=== PATIENT | male | born 1935 | race Caucasian/White ===

== ENCOUNTER 2017-05-21 13:43 | Emergency (ER) | payer OTHER, MEDICARE ==
[~2017-05-21] VITALS: Ht 185.4 cm; Wt 80.0 kg
[2017-05-21] MEDS ORDERED: LOSARTAN POT25 MG PO (13:57)
[2017-05-21] MEDS ORDERED: PRAVASTATIN10 MG PO (13:57)
[2017-05-21] MEDS ORDERED: OMEPRAZOLE20 M1 PO (13:57)
[2017-05-21] MEDS ORDERED: LEVOTHYROXIN100 MC1 PO (13:58)
[2017-05-21] MEDS ORDERED: COLACE100 MG PO (13:59)
[2017-05-21] MEDS ORDERED: FLOVENT HF220 MCG/AC IN (14:00)
[2017-05-21] MEDS ORDERED: ASPIRIN 81 LOW81 MG PO (14:01)
[2017-05-21] MEDS ORDERED: DEBROX6.5 % OT (14:05)
[2017-05-21] MEDS ORDERED: PREDNISONE50 MG PO (14:05)
[2017-05-21] MEDS ORDERED: ZITHROMAX250 MG PO (14:05)
[2017-05-21 14:06] VITALS: BP 155/67
== END 2017-05-21 14:22 | disposition home or self-care (01) | DRG 203 ==
LOC: ED 13:43
DX: J20.9 Acute bronchitis, unspecified (principal); E03.9 Hypothyroidism, unspecified; I10 Essential (primary) hypertension; K21.9 Gastro-esophageal reflux disease without esophagitis; E78.00 Pure hypercholesterolemia, unspecified

== ENCOUNTER 2017-05-27 11:03 | Emergency (ER) | payer MEDICARE ==
[~2017-05-27] VITALS: Ht 185.4 cm; Wt 75.8 kg
[~2017-05-27 11:03] MED LIST: ASPIRIN 81 LOW81 MG PO; COLACE100 MG PO; DEBROX6.5 % OT; FLOVENT HF220 MCG/AC IN; LEVOTHYROXIN100 MC1 PO; LOSARTAN POT25 MG PO; OMEPRAZOLE20 M1 PO; PRAVASTATIN10 MG PO; PREDNISONE50 MG PO; ZITHROMAX250 MG PO
[2017-05-27 12:00] LABS: HEMATOCRIT 44.2 % (39.0-50.0); IMMATURE GRANULOCYTES 5.7 % (0.0-1.0); MEAN CELL VOLUME 92.3 fL CALC (80.0-100.0); MEAN CORPUSCULAR HGB 31.3 pG CALC (26.0-32.0); MEAN CORPUSCULAR HGB CONC 33.9 g/L CALC (32.0-36.0); NEUT# 8.86 thou/uL (1.82-7.42); RED BLOOD COUNT 4.79 mill/uL (4.70-6.10); RED CELL DISTRI WIDTH 11.9 % (11.5-15.5)
[2017-05-27 12:15] LABS: ALKALINE PHOSPHATASE 101 u/l (38-126); ANION GAP 17 (6-22 (CALC)); BILIRUBIN, TOTAL 0.4 mg/dL (0.0-1.4); BUN 25 mg/dL (8-23); BUN/CREATININE RATIO 22 (12-20 (CALC)); CALCIUM 9.6 mg/dL (8.4-10.2); CARBON DIOXIDE 27 mmol/l (22-30); CHLORIDE 99 mmol/l (95-108); CREATININE 1.1 mg/dL (0.7-1.3); GFR > 60 ML/MIN (>=60 (CALC)); GFR FOR AFR.AMER. > 60 ML/MIN (>=60 (CALC)); GLUCOSE 98 mg/dL (82-115); POTASSIUM 4.5 mmol/l (3.5-5.1); SGOT/AST 40 u/l (19-48); SGPT/ALT 54 u/l (11-66); SODIUM 138 mmol/l (137-146); TOTAL PROTEIN 7.1 g/dL (6.3-8.2)
[2017-05-27] MEDS ORDERED: TESSALON PERLE100 MG PO (12:45)
[2017-05-27] MEDS ORDERED: PROVENTIL HFA IN (12:45)
[2017-05-27] MEDS ORDERED: ERYTHROMYCIN O3.5 GM OU (12:47)
[2017-05-27 13:13] VITALS: BP 163/68
== END 2017-05-27 13:13 | disposition home or self-care (01) ==
LOC: ED 11:03
PROVIDERS: Emergency Medicine
DX: R05 Cough (principal); I10 Essential (primary) hypertension; E78.00 Pure hypercholesterolemia, unspecified; Z95.1 Presence of aortocoronary bypass graft; Z87.09 Personal history of other diseases of the respiratory system

== ENCOUNTER 2018-08-05 10:56 | Emergency (ER) | payer MEDICARE ==
[~2018-08-05] VITALS: Ht 185.4 cm; Wt 75.0 kg
[~2018-08-05 10:56] MED LIST changes: +ERYTHROMYCIN O3.5 GM OU; +PROVENTIL HFA IN; +TESSALON PERLE100 MG PO
[2018-08-05] MEDS ORDERED: TAMSULOSIN HCL0.4 MG PO (11:21)
[2018-08-05] MEDS ORDERED: CARB/LEVO SR PO (11:31)
[2018-08-05] MEDS ORDERED: VITAMIN D-31000 UNI1 PO (11:34)
[2018-08-05] MEDS ORDERED: COQ-10100 M1 PO (11:34)
[2018-08-05] MEDS ORDERED: TRAMADOL HCL50 MG PO (11:35)
[2018-08-05] MEDS ORDERED: PREDNISONE50 MG PO (12:03)
[2018-08-05 12:42] VITALS: BP 146/70
== END 2018-08-05 12:42 | disposition home or self-care (01) ==
LOC: ED 10:56
DX: G89.29 Other chronic pain (principal); M54.5 Low back pain

== ENCOUNTER 2018-08-07 19:00 | Emergency (ER) | payer MEDICARE ==
[~2018-08-07] VITALS: Ht 185.4 cm; Wt 76.4 kg
[~2018-08-07 19:00] MED LIST changes: +CARB/LEVO SR PO; +COQ-10100 M1 PO; +TAMSULOSIN HCL0.4 MG PO; +TRAMADOL HCL50 MG PO; +VITAMIN D-31000 UNI1 PO
[2018-08-07] MEDS ORDERED: TRAMADOL HYDROC50 MG PO (23:33)
[2018-08-07] MEDS ORDERED: ORPHENADRINE100 MG PO (23:33)
[2018-08-07 23:39] VITALS: BP 139/63
== END 2018-08-07 23:50 | disposition home or self-care (01) ==
LOC: ED 19:00
DX: M54.5 Low back pain (principal); G89.29 Other chronic pain; I10 Essential (primary) hypertension; M16.11 Unilateral primary osteoarthritis, right hip; X50.0XXA Overexertion from strenuous movement or load, initial encounter; Y93.89 Activity, other specified; Y92.009 Unspecified place in unspecified non-institutional (private) residence as the place of occurrence of the external cause

== ENCOUNTER 2021-08-23 16:43 | Emergency (ER) | payer OTHER, MEDICARE ==
[~2021-08-23] VITALS: Ht 185.4 cm; Wt 84.0 kg
[2021-08-23] VITALS (8 sets, daily range): BP systolic 153–189; BP diastolic 59–75
[~2021-08-23 16:43] MED LIST changes: +ORPHENADRINE100 MG PO; +TRAMADOL HYDROC50 MG PO
[2021-08-23 17:36] LABS: HEMATOCRIT 44.4 % (39.0-50.0); HEMOGLOBIN 14.9 g/dl (14.0-18.0); IMMATURE GRANULOCYTES 0.1 % (0.0-5.0); MEAN CELL VOLUME 95.3 fL CALC (80.0-100.0); MEAN CORPUSCULAR HGB CONC 33.6 g/dL CAL (32.0-36.0); NEUT# 4.52 thou/uL (1.82-7.42); RED BLOOD COUNT 4.66 mill/uL (4.70-6.10); RED CELL DISTRI WIDTH 12.4 % (11.5-15.5)
[2021-08-23 17:48] LABS: ALBUMIN 4.6 g/dL (3.2-5.0); ALKALINE PHOSPHATASE 62 u/l (38-126); ANION GAP 13 (6-22 (CALC)); BILIRUBIN, TOTAL 0.7 mg/dL (0.0-1.4); BUN 15 mg/dL (8-23); BUN/CREATININE RATIO 15 (12-20 (CALC)); CARBON DIOXIDE 27 mmol/l (22-30); CHLORIDE 101 mmol/l (95-108); GFR > 60 ML/MIN (>=60 (CALC)); GFR FOR AFR.AMER. > 60 ML/MIN (>=60 (CALC)); LIPASE 66 u/l (23-300); MAGNESIUM 1.9 mg/dL (1.6-2.3); POTASSIUM 3.9 mmol/l (3.5-5.1); SGOT/AST 26 u/l (19-48); SODIUM 137 mmol/l (137-146); TOTAL PROTEIN 7.9 g/dL (6.3-8.2)
[2021-08-23 17:59] LABS: MYOGLOBIN 66 ng/mL (0 - 121)
[2021-08-23 18:12] LABS: URINE BILIRUBIN - DIPSTICK NEGATIVE (NEGATIVE); URINE BLOOD DIPSTICK TRACE-INTACT (NEGATIVE); URINE COLOR YELLOW; URINE GLUCOSE - DIPSTICK NEGATIVE (NEGATIVE); URINE KETONE NEGATIVE (NEGATIVE); URINE LEUK ESTERASE NEGATIVE (NEGATIVE); URINE PROTEIN - DIPSTICK NEGATIVE (NEG-TRACE); URINE SPECIFIC GRAVITY 1.015; URINE UROBILINOGEN - DIPSTICK 0.2 E.U./dL (0.2)
[2021-08-23 18:13] LABS: URINE NITRITE - DIPSTICK NEGATIVE (Negative)
[2021-08-23] MEDS ORDERED: MEDDOSEPAK PO (20:04)
[2021-08-23] MEDS ORDERED: METHOCARBAMOL500 MG PO (20:04)
== END 2021-08-23 20:59 | disposition home or self-care (01) | DRG 948 ==
LOC: ED 16:43
PROVIDERS: Nurse Practitioner
DX: R53.1 Weakness (principal); G20 Parkinson's disease; F02.80 Dementia in other diseases classified elsewhere, unspecified severity, without behavioral disturbance, psychotic disturbance, mood disturbance, and anxiety; I10 Essential (primary) hypertension; E78.5 Hyperlipidemia, unspecified; I25.10 Atherosclerotic heart disease of native coronary artery without angina pectoris; K21.9 Gastro-esophageal reflux disease without esophagitis; N40.0 Benign prostatic hyperplasia without lower urinary tract symptoms; Z95.1 Presence of aortocoronary bypass graft

== ENCOUNTER 2024-06-18 13:44 | Observation (INO) | payer OTHER, MEDICARE ==
[2024-06-18] VITALS (18 sets, daily range): BP systolic 126–184; BP diastolic 63–82
[~2024-06-18] VITALS: Ht 185.4 cm; Wt 77.0 kg
[~2024-06-18 13:44] MED LIST changes: +MEDDOSEPAK PO; +METHOCARBAMOL500 MG PO
[2024-06-18 14:22] LABS: BASO% 0.3 % (0-3); EOS% 5.8 % (0-8); HEMOGLOBIN 13.9 g/dl (14.0-18.0); IMMATURE GRANULOCYTES 0.2 % (0.0-5.0); LYMPH% 27.8 % (15-41); MEAN CELL VOLUME 99.1 fL CALC (80.0-100.0); MEAN CORPUSCULAR HGB 32.8 pG CALC (26.0-32.0); MEAN CORPUSCULAR HGB CONC 33.1 g/dL CAL (32.0-36.0); MONO% 9.9 % (2-13); NEUT# 3.29 thou/uL (1.82-7.42); RED BLOOD COUNT 4.24 mill/uL (4.70-6.10); RED CELL DISTRI WIDTH 12.3 % (11.5-15.5)
[2024-06-18 14:38] LABS: ALBUMIN 3.9 g/dL (3.2-5.0); ALKALINE PHOSPHATASE 54 u/l (38-126); ANION GAP 13 (6-22 (CALC)); BILIRUBIN, TOTAL 0.7 mg/dL (0.2-1.3); BUN 13 mg/dL (8-23); BUN/CREATININE RATIO 13 (12-20 (CALC)); CALCULATED LDLCHOLESTEROL 17 mg/dL (62-129 (CALC)); CARBON DIOXIDE 26 mmol/l (22-30); CHLORIDE 105 mmol/l (95-108); CHOLESTEROL HDL RATIO 2.2 (<4.4 (CALC)); ESTIMATED GFR 73 ML/MIN (>=90 (CALC)); HDL CHOLESTEROL 34 mg/dL (39.0-59.0); POTASSIUM 4.5 mmol/l (3.5-5.1); SGOT/AST 24 u/l (19-48); SODIUM 140 mmol/l (137-146); TOTAL CHOLESTEROL 75 mg/dl (0-199); TOTAL PROTEIN 6.4 g/dL (6.3-8.2); TOTAL TRIGLYCERIDES 116 mg/dl (0-149); VLDL CHOLESTROL 23 mg/dl (0-38 (CALC))
[2024-06-18 14:53] LABS: PROTHROMBIN TIME 11.2 SECONDS (9.0-12.5)
[2024-06-18] MEDS ORDERED: ALPHA LIPOIC A200 M1 PO (15:25)
[2024-06-18] MEDS ORDERED: ATORVASTATIN CA40 MG PO (15:26)
[2024-06-18] MEDS ORDERED: ASPIRIN325 MG PO (15:26)
[2024-06-18] MEDS ORDERED: SINEMET PO (15:28)
[2024-06-18] MEDS ORDERED: LEVOTHYROXIN100 MCG PO (15:28)
[2024-06-18] MEDS ORDERED: NEURONTIN400 MG PO (15:28)
[2024-06-18] MEDS ORDERED: MEMANTINE HYDRO10 MG PO (15:29)
[2024-06-18] MEDS ORDERED: MIRALAX17 GM (15:30)
[2024-06-18] MEDS ORDERED: MIDODRINE HYDR2.5 MG (15:30)
[2024-06-18] MEDS ORDERED: PSYLLIUM XX (15:30)
[2024-06-18 15:51] LABS: URINE BILIRUBIN - DIPSTICK Negative (NEGATIVE); URINE BLOOD DIPSTICK Negative (NEGATIVE); URINE GLUCOSE - DIPSTICK Negative (NEGATIVE); URINE KETONE Negative (NEGATIVE); URINE LEUK ESTERASE Negative (NEGATIVE); URINE NITRITE - DIPSTICK Negative (Negative); URINE PROTEIN - DIPSTICK Negative (NEG-TRACE); URINE UROBILINOGEN - DIPSTICK 0.2 E.U./dL (0.2)
[2024-06-18 15:53] LABS: URINE COLOR Yellow
[2024-06-18] MEDS ORDERED: DEXTROSE 250 ML IV PRN (17:55)
[2024-06-18] MEDS ORDERED: LEVOTHYROXIN50 MCG PO (20:52)
[2024-06-18] MEDS ORDERED: SINEMET 25/1001 TA2 PO (20:55)
[2024-06-18] MEDS ORDERED: ATORVASTATIN CALCIUM 40 MG/TAB PO SCH (21:00)
[2024-06-18] MEDS ORDERED: CLARIFY DOSE PO PRN (23:35)
[2024-06-19] VITALS (7 sets, daily range): BP systolic 153–186; BP diastolic 60–81
[2024-06-19] MEDS ORDERED: CARBIDOPA/LEVODOPA 25/100 MG IR 1 COMBO/TAB PO SCH ×2 (08:00→13:00)
[2024-06-19] MEDS ORDERED: CLOPIDOGREL BISULFATE 75 MG/TAB TAB PO SCH (09:00)
[2024-06-19] MEDS ORDERED: PANTOPRAZOLE SODIUM Sesquihydr 40 MG/TAB PO SCH (09:00)
[2024-06-19] MEDS ORDERED: ASPIRIN 81 MG/TAB PO SCH (09:00)
[2024-06-19] MEDS ORDERED: LEVOTHYROXINE SODIUM 50 MCG/TAB PO SCH (11:30)
[2024-06-19] MEDS ORDERED: ACETAMINOPHEN 325 MG/TAB PO PRN (17:00)
[2024-06-19] MEDS ORDERED: ENOXAPARIN SODIUM 40 MG/0.4 ML SYR SC SCH (21:00)
[2024-06-20] VITALS (10 sets, daily range): BP systolic 100–179; BP diastolic 57–74
[2024-06-20] MEDS ORDERED: ASPIRIN 81 MG/TAB PO SCH (09:00)
[2024-06-20] MEDS ORDERED: hydrALAZINE HCL 20 MG/ML VIAL(1 ML) IV PRN (12:55)
[2024-06-20] MEDS ORDERED: SODIUM CHLORIDE 0.9% 1,000 ML IV SCH (13:00)
[2024-06-20 13:21] LABS: BASO% 0.1 % (0-3); EOS% 1.7 % (0-8); HEMATOCRIT 43.7 % (39.0-50.0); HEMOGLOBIN 14.6 g/dl (14.0-18.0); IMMATURE GRANULOCYTES 0.2 % (0.0-5.0); LYMPH% 16.9 % (15-41); MEAN CELL VOLUME 96.7 fL CALC (80.0-100.0); MEAN CORPUSCULAR HGB 32.3 pG CALC (26.0-32.0); MEAN CORPUSCULAR HGB CONC 33.4 g/dL CAL (32.0-36.0); MONO% 7.4 % (2-13); NEUT# 8.15 thou/uL (1.82-7.42); NEUT% 73.7 % (42-76); RED BLOOD COUNT 4.52 mill/uL (4.70-6.10); RED CELL DISTRI WIDTH 12.1 % (11.5-15.5)
[2024-06-20 13:37] LABS: ALBUMIN 4.2 g/dL (3.2-5.0); CREATININE 0.8 mg/dL (0.7-1.3); POTASSIUM 4.6 mmol/l (3.5-5.1); TOTAL PROTEIN 6.9 g/dL (6.3-8.2)
[2024-06-21 03:55] VITALS: BP 153/54
[2024-06-21 05:34] LABS: BASO% 0.3 % (0-3); EOS% 4.2 % (0-8); HEMATOCRIT 39.4 % (39.0-50.0); HEMOGLOBIN 13.4 g/dl (14.0-18.0); IMMATURE GRANULOCYTES 0.1 % (0.0-5.0); LYMPH% 26.6 % (15-41); MEAN CELL VOLUME 96.6 fL CALC (80.0-100.0); MEAN CORPUSCULAR HGB 32.8 pG CALC (26.0-32.0); MONO% 9.6 % (2-13); NEUT# 4.67 thou/uL (1.82-7.42); NEUT% 59.2 % (42-76); RED BLOOD COUNT 4.08 mill/uL (4.70-6.10); RED CELL DISTRI WIDTH 12.2 % (11.5-15.5)
[2024-06-21 05:41] LABS: ALBUMIN 3.4 g/dL (3.2-5.0); BILIRUBIN, TOTAL 0.7 mg/dL (0.2-1.3); CREATININE 0.8 mg/dL (0.7-1.3); POTASSIUM 4.1 mmol/l (3.5-5.1); TOTAL PROTEIN 5.8 g/dL (6.3-8.2)
[2024-06-21 07:00] VITALS: BP 162/55
[2024-06-21 10:45] VITALS: BP 123/62
== END 2024-06-21 13:54 | DRG 72 ==
LOC: ED 13:44 → ED-I 16:10 → ED 16:13 → MS2 16:14
PROVIDERS: Family Medicine; Internal Medicine; ADMIT Internal Medicine; ATTEND Internal Medicine
DX: G93.40 Encephalopathy, unspecified (principal); G20.A1 Parkinson's disease without dyskinesia, without mention of fluctuations; I95.1 Orthostatic hypotension; I10 Essential (primary) hypertension; I25.10 Atherosclerotic heart disease of native coronary artery without angina pectoris; K21.9 Gastro-esophageal reflux disease without esophagitis; E78.00 Pure hypercholesterolemia, unspecified; E03.9 Hypothyroidism, unspecified; Z95.1 Presence of aortocoronary bypass graft
CPT/HCPCS: J1650; Q9967